=== PATIENT | female | born 1955 | race Caucasian/White ===

== ENCOUNTER 2017-02-09 10:31 | Outpatient (CLI) | payer OTHER ==
--- NOTE | 2017-02-10 18:06 | Mammography Report ---
DIGITAL SCREENING MAMMOGRAM: 02/09/2017 CLINICAL INDICATION: A 61-year-old for screening. COMPARISON: 01/2016, 12/2014, 12/2013, 12/2012, 11/2011, 10/2010, 10/2009. TECHNIQUE: Routine CC and MLO projections were obtained of the breasts. FINDINGS: Parenchymal tissue within the breasts is predominantly fatty replaced. There are no domin ant masses, suspicious microcalcifications, or secondary signs of malignancy. In comparison to the p revious studies, there are no significant changes. IMPRESSION: NO MAMMOGRAPHIC EVIDENCE OF MALIGNANCY. NO SIGNIFICANT INTERVAL CHANGES. RECOMMENDATION: Screening mammography is recommended annually. BIRADS category 1 - negative. STANDARD QUALIFYING STATEMENTS 1. This examination was reviewed with the aid of Computed-Aided Detection (CAD). 2. A negative or benign imaging report should not delay biopsy if clinically suspicious findings are present. Consider surgical consultation if warranted. More than 5% of cancers are not identified b y imaging. 3. Dense breasts may obscure an underlying neoplasm. JOB #: [id number] EXT JOB #:[id number]
== END 2017-02-09 10:32 | disposition home or self-care (01) ==
LOC: DI.N 10:31
PROVIDERS: ATTEND Internal Medicine
DX: Z12.31 Encounter for screening mammogram for malignant neoplasm of breast (principal)
CPT/HCPCS: 77067

== ENCOUNTER 2018-11-10 13:18 | Outpatient (CLI) | payer MEDICARE, OTHER ==
--- NOTE | 2018-11-11 09:10 | Mammography Report ---
Reason: SCREENING MAMMO Procedure Date: 11/10/2018 Accession Number: [id number] / [id number] Procedure: MGN - Screening Mammo Dig Bilat CPT Code: FULL RESULT: EXAM: Screening Mammo Dig Bilat DATE: 11/10/2018 2:44 PM CLINICAL HISTORY: Screening encounter. No reported risk factors. TECHNIQUE: (B) - Bilateral CC and MLO views were obtained. COMPARISON: 02/09/2017 through 01/06/2014. PARENCHYMAL PATTERN: (F) - The breast(s) demonstrate(s) diffuse fatty replacement. FINDINGS: In the right upper retroareolar breast 1 cm deep to the nipple is a 0.6 cm isodense nodule, partially obscured by vessel, otherwise well-circumscribed and not definitely demonstrated on prior exams. Right CC view suggests the finding is likely lateral, 10-11 o'clock but partially obscured on cc view. This requires additional spot imaging if possible with tomography as well as ultrasound for clarification. There are no suspicious masses, calcifications, or areas of distortion in the left breast. IMPRESSION: Incomplete examination. BI-RADS category 0. RECOMMENDATION: (ADDMU) - Additional views using both Mammography and Ultrasound recommended. Right upper breast retroareolar region 1 cm deep to the nipple, likely upper outer quadrant. BI-RADS CATEGORY: (0) - Incomplete Examination - need additional evaluation. STANDARD QUALIFYING STATEMENTS: 1. This examination was not reviewed with the aid of Computer-Aided Detection (CAD). 2. A negative or benign imaging report should not preclude biopsy if clinically suspicious findings are present. 3. Dense breasts may obscure an underlying neoplasm. 4. This examination was reviewed without the aid of 3D breast imaging (tomosynthesis).
== END 2018-11-10 13:19 | disposition home or self-care (01) ==
LOC: DI.N 13:18
DX: Z12.31 Encounter for screening mammogram for malignant neoplasm of breast (principal); R92.8 Other abnormal and inconclusive findings on diagnostic imaging of breast
CPT/HCPCS: 77067

== ENCOUNTER 2018-11-16 10:25 | Outpatient (CLI) | payer MEDICARE, OTHER ==
--- NOTE | 2018-11-16 11:12 | DEXA Report ---
Reason: SCREENING FOR OSTEOPOROSIS, POSTMENOPAUSAL, FAMILY Procedure Date: 11/16/2018 Accession Number: [id number] / [id number] Procedure: DEX - Dexa Spine and/or Hip CPT Code: FULL RESULT: EXAM: Dexa Spine and/or Hip DATE: 11/16/2018 10:56 AM CLINICAL HISTORY: SCREENING FOR OSTEOPOROSIS, POSTMENOPAUSAL, FAMILY TECHNIQUE: Dual energy x-ray absorptiometry (DXA) was performed on a [employer] System. Regions measured are the AP Spine, femoral neck, and if needed forearm. COMPARISON: 12/17/2006. In accordance with the International Society for Clinical Densitometry (ISCD) guidelines, data from previous exams may be reanalyzed using current recommendations and techniques. This is done to allow a more accurate basis for comparison with the current study. FINDINGS: The data for the lumbar spine is as follows: BMD (g/cm/cm) T-SCORE Z-SCORE REGION L1 1.003 -1.1 -0.6 L2 1.107 -0.8 -0.4 L3 1.124 -0.6 -0.2 L4 1.279 0.7 1.1 TOTAL 1.141 -0.3 0.1 NOTE: All evaluable vertebrae are used for classification The data for the hip is as follows: BMD (g/cm/cm) T-SCORE Z-SCORE REGION Neck 0.889 -1.1 -0.4 TOTAL 1.004 0.0 0.3 NOTE: The femoral neck or total proximal femur, whichever is lowest, is used for classification. IMPRESSION: THE WHO CLASSIFICATION BASED ON THE INTERNATIONAL REFERENCE STANDARD IS OSTEOPENIA (Reference left femoral neck). THE FRACTURE RISK IS INCREASED. RECOMMENDATION: Patients with diagnosis of osteoporosis or osteopenia should have regular bone mineral density assessment. For those eligible for Medicare, routine testing is allowed once every 2 years. Testing frequency can be increased for patients who have rapidly progressing disease or for those who are receiving medical therapy to restore bone mass. COMMENT: World Health Organization (WHO) definitions for osteoporosis and osteopenia: NORMAL BMD: T-score at -1.0 or higher, fracture risk is low OSTEOPENIA BMD: T-score between -1.0 and -2.5, fracture risk is increased. OSTEOPOROSIS BMD: T-score at -2.5 or lower, fracture risk is high. National Osteoporosis Foundation recommends: 1. Obtain adequate dietary calcium (at least 1200 mg per day) and vitamin D (400-800 international units per day). 2. Participate, as appropriate, in regular weightbearing and muscle-strengthening exercise. 3. Avoid tobacco use and reduce alcohol and caffeine intake. 4. For more detailed information see the website at www.NOF.org.
== END 2018-11-16 10:26 | disposition home or self-care (01) ==
LOC: DI 10:25
PROVIDERS: ATTEND Internal Medicine
DX: Z13.820 Encounter for screening for osteoporosis (principal); M85.88 Other specified disorders of bone density and structure, other site; Z78.0 Asymptomatic menopausal state; Z82.62 Family history of osteoporosis
CPT/HCPCS: 77080

== ENCOUNTER 2018-11-25 10:19 | Outpatient (CLI) | payer MEDICARE, OTHER ==
--- NOTE | 2018-11-25 11:54 | Mammography Report ---
Reason: ABN MAMMOGRAM Procedure Date: 11/25/2018 Accession Number: [id number] / [id number] Procedure: INOCENCIA - Diag Special Views Dig RT CPT Code: FULL RESULT: EXAM: Diag Special Views Dig RT DATE: 11/25/2018 10:55 AM CLINICAL HISTORY: Diagnostic mammogram. The patient is recalled from screening for findings of a new right breast retroareolar nodule. TECHNIQUE: (R) - Right CC, spot CC, MLO, ML images are obtained of the right breast. Focused right breast ultrasound examination is performed. COMPARISON: 11/10/2018 through 01/06/2014. PARENCHYMAL PATTERN: (F) - The breast(s) demonstrate(s) diffuse fatty replacement. FINDINGS: The new finding of a retroareolar nodule persists and demonstrates appearance of a cluster of small nodules on tomographic and spot images. This finding is confirmed by ultrasound which revealed a wider than tall cluster of small cysts with an overall dimension of 0.7 x 0.3 x 0.3 cm and nearby vascularity by color Doppler at the 11:00 retroareolar position. This is probably benign. There are no suspicious masses, calcifications, or areas of distortion. IMPRESSION: Probably Benign. BI-RADS category 3. RECOMMENDATION: (6MOS) - Recommend 6 month follow-up exam. Right breast focused ultrasound of the new finding. BI-RADS CATEGORY: (3) - Probably Benign. STANDARD QUALIFYING STATEMENTS: 1. This examination was not reviewed with the aid of Computer-Aided Detection (CAD). 2. A negative or benign imaging report should not preclude biopsy if clinically suspicious findings are present. 3. Dense breasts may obscure an underlying neoplasm. 4. This examination was reviewed with the aid of 3D breast imaging (tomosynthesis).
== END 2018-11-25 10:20 | disposition home or self-care (01) ==
LOC: DI 10:19
PROVIDERS: ATTEND Internal Medicine
DX: R92.8 Other abnormal and inconclusive findings on diagnostic imaging of breast (principal)
CPT/HCPCS: 76642

== ENCOUNTER 2019-07-11 13:58 | Outpatient (CLI) | payer MEDICARE, OTHER ==
--- NOTE | 2019-07-11 15:38 | Ultrasound Report ---
Reason: 6 MONTH F U - ABN MAMMO Procedure Date: 07/11/2019 Accession Number: [id number] / [id number] Procedure: US - Breast Unilateral Limited CPT Code: Final Report FULL RESULT: EXAM: Breast Unilateral Limited DATE: 07/11/2019 2:29 PM CLINICAL HISTORY: 6 MONTH F U - ABN MAMMO COMPARISON: 11/25/2018 ultrasound TECHNIQUE: Targeted ultrasound was performed of the right breast in the area of clinical concern at 11:00 o'clock immediate retroareolar breast. Color Doppler was employed as appropriate. FINDINGS: Stable appearance of the small cyst cluster measuring 7 x 3 x 4 mm compared with 11/25/2018. No suspicious solid mass is seen. IMPRESSION: Benign findings RECOMMENDATION: Return to routine screening mammography in 6 months. BIRADS CATEGORY 2: Benign findings RADIA
== END 2019-07-11 13:59 | disposition home or self-care (01) ==
LOC: DI 13:58
PROVIDERS: ATTEND Internal Medicine
DX: N60.11 Diffuse cystic mastopathy of right breast (principal)
CPT/HCPCS: 76642

== ENCOUNTER 2020-02-23 14:58 | Outpatient (CLI) | payer MEDICARE, OTHER ==
--- NOTE | 2020-02-24 09:17 | Mammography Report ---
BILATERAL DIGITAL SCREENING MAMMOGRAM 3D/2D: 02/23/2020 CLINICAL: Routine screening. Comparison is made to exams dated: 07/11/2019 ultrasound, 11/25/2018 mammogram, 11/10/2018 mammogram, mammogram, and 02/01/2016 mammogram - [facility]. The tissue of both breast s is predominantly fatty. No significant masses, calcifications, or other findings are seen in either breast. There has been no significant interval change. IMPRESSION: NEGATIVE There is no mammographic evidence of malignancy. A 1 year screening mammogram is recommended. This exam was interpreted at Station ID: [id number]. NOTE: For mammograms, a report in lay terms will be sent to the patient. Approximately 15% of breast malignancies will not be visualized mammographically. In the management of a palpable breast mass, a negative mammogram must not discourage biopsy of a clinically suspicious lesion. Electronically Signed By: Олег Kilgore M.D. ar/penrad:02/23/2020 18:07:22 ACR BI-RADS Category 1: Negative 3341F PARENCHYMAL PATTERN: (F) - The breast(s) demonstrate(s) diffuse fatty replacement. BI-RADS CATEGORY: (1) - 1 RECOMMENDATION: (ANNUAL) - Recommend routine annual screening mammography. [id number] 1 year screening LATERALITY: (B)
== END 2020-02-23 14:59 | disposition home or self-care (01) ==
LOC: DI.N 14:58
PROVIDERS: ATTEND Internal Medicine
DX: Z12.31 Encounter for screening mammogram for malignant neoplasm of breast (principal)
CPT/HCPCS: 77063; 77067

== ENCOUNTER 2021-08-05 08:13 | Emergency (ER) | payer MEDICARE ==
--- NOTE | 2021-08-05 09:57 | ED Physician Documentation ---
History of Present Illness - Stated complaint Stated Complaint: SHORNESS OF BREATH, PANIC ATTACK - Chief complaint Chief Complaint: Resp - History obtained from History obtained from: Patient - Additonal information Additional information: The patient comes to the emergency department for chief complaint of panic attack, Covid symptoms, and I need my blood sugar checked. The patient states that she began having a headache and fever a couple of weeks ago and then developed a cough. She states the fevers have resolved, but she has maintained a mild cough since then and still has been having some headaches. No body aches or sore throat. The patient states she is worried that she might have Covid. She states she is vaccinated. The patient states she was at a family event shortly before she became symptomatic and found out later that to the people at the event tested positive for Covid. She states that last night, after getting a Covid test yesterday and not having results back yet, she began to think about it and just became increasingly anxious till she had a panic attack. The patient states she has had a panic attack previously but it has been a long time. She is chronically on E citalopram, but also realized that it had been several days since she had taken the medication, so thinks this might be part of her panic attack, as well. She states that she took propranolol and a dose of her E citalopram and it did seem to help quite a bit. She states she is no longer feeling panicky here. The patient states one of the other things that was wearing her is that she has had a dry mouth and seems to be urinating a lot, though she is also drinking a lot. She was told she had borderline diabetes and is concerned that her sugars may be high. No other complaints at this time. Review of Systems Ten Systems: 10 systems reviewed and negative Constitutional: reports: Reviewed and negative Eyes: reports: Reviewed and negative Ears: reports: Reviewed and negative Nose: reports: Reviewed and negative Throat: reports: Reviewed and negative Cardiac: reports: Reviewed and negative Respiratory: reports: Cough GI: reports: Reviewed and negative : reports: Reviewed and negative Skin: reports: Reviewed and negative Musculoskeletal: reports: Reviewed and negative Neurologic: reports: Headache Psychiatric: reports: Reviewed and negative Endocrine: reports: Reviewed and negative Immunocompromised: reports: Reviewed and negative PD PAST MEDICAL HISTORY - Past Medical History Past Medical History: Yes Psych: Anxiety, Panic attacks - Present Medications Home Medications: Ambulatory Orders Medication Instructions Recorded Confirmed Alprazolam [Xanax] 0.25 mg PO Q8H PRN #10 tablet 08/05/21 - Allergies Allergies/Adverse Reactions: Allergies Allergy/AdvReac Type Severity Reaction Status Date / Time No Known Drug Allergies Allergy Verified 08/05/21 08:21 - Social History Does the pt smoke?: No Smoking Status: Never smoker PD ED PE NORMAL - Vitals Vital signs reviewed: Yes - General General: Alert and oriented X 3, No acute distress (Well-appearing patient in no distress) - HEENT HEENT: Atraumatic, PERRL, EOMI, Moist mucous membranes - Neck Neck: Supple, no meningeal sign - Cardiac Cardiac: RRR, No murmur, Strong equal pulses - Respiratory Respiratory: No respiratory distress, Clear bilaterally - Abdomen Abdomen: Soft, Non tender, Non distended - Derm Derm: Normal color, Warm and dry, No rash - Extremities Extremities: No deformity, No edema, No calf tenderness / cord - Neuro Neuro: Alert and oriented X 3, mission assessment specialist 2-12 intact, Normal speech - Psych Psych: Normal mood, Normal affect Results - Vitals Vitals: Vital Signs - 24 hr 08/05/21 08/05/21 08:17 08:29 Temperature 36.6 C Heart Rate 78 66 Respiratory 16 16 Rate Blood Pressure 148/118 H O2 Saturation 99 98 Oxygen O2 Source Room air - Labs Labs: Laboratory Tests 08/05/21 09:31 POC Whole Bld Glucose 119 H PD MEDICAL DECISION MAKING - ED course Complexity details: considered differential, d/w patient ED course: The patient in the emergency department actually appeared quite well and I did not feel any emergent interventions were indicated. I did do a fingerstick glucose on patient which was 119. She just had a Covid test taken yesterday and this is pending at this time. The patient has good oxygen saturation, comfortable breathing, and clear lungs, and I do not feel that, given the absence of these and any other symptoms acutely, she needs to have a more rapid Covid test done. I have discussed the same with the patient. I have advised her to stay home and await her test results. We have discussed follow-up with her primary doctor. At this point in time, her blood sugar is only very slightly elevated and I feel it is unlikely to be the cause of her sense of polyuria. More likely, the sense of dry mouth has caused her to drink more water, which is causing her to urinate more. We have discussed symptomatic management at home and the usual indications for return Departure - Departure Disposition: 01 Home, Self Care Clinical Impression: Viral syndrome, Dry mouth Condition: Stable Instructions: ED Viral Syndrome Prescriptions: Alprazolam [Xanax] 0.25 mg PO Q8H PRN #10 tablet PRN Reason: Anxiety Comments: Your blood sugar actually looks fairly good at 119. This is ever so slightly above normal, but should not be making you urinate more. Most likely, the dry mouth is driving you to drink more, which is causing you to urinate more. You may speak with your doctor about this if you have further concerns. At this point in time, your Covid test is pending and you should await these results. Your lungs are clear today, your respirations are normal, and your oxygen saturation and your blood is also normal. There is no evidence of a severe case of COVID or complications thereof. Please continue to manage symptoms at home. If you are positive for COVID, then you may come out of quarantine when you were no longer experiencing symptoms, since you have had symptoms already for the past 2 weeks. Please follow-up with your doctor as needed. A prescription for anxiety medication has been electronically transmitted to [facility] pharmacy in [place].
[2021-08-05 10:12] VITALS: BP 125/100
== END 2021-08-05 10:11 | disposition home or self-care (01) ==
LOC: ED 08:13
DX: B34.9 Viral infection, unspecified (principal); R68.2 Dry mouth, unspecified
CPT/HCPCS: 99282; 99284

== ENCOUNTER 2021-08-23 12:33 | Outpatient (CLI) | payer MEDICARE ==
--- NOTE | 2021-08-23 16:23 | DEXA Report ---
PROCEDURE: Dexa Spine and/or Hip INDICATIONS: OSTEOPENIA, POST MENOPAUSAL TECHNIQUE: Dual energy x-ray absorptiometry (DXA) was performed on a [employer] System. Regions measur ed are the AP Spine, femoral neck, and if needed forearm. COMPARISON: 11/16/2018. FINDINGS: Lumbar Spine: Bone Mineral Density 1.302 g/cm/cm,T score 1.0. There is interval 14.1% increase in total lumbar s pine bone mineral density. Left Hip: Bone Mineral Density 1.019 g/cm/cm,T score 0.1. There is an oval 1.5% increase in total left hip bon e mineral density. Left Femoral Neck: Bone Mineral Density 0.938 g/cm/cm, T score -0.7 (T score greater or equal to -1.0: NORMAL) (T score from -1.1 to -2.4: OSTEOPENIA) (T score less than or equal to -2.5 to: OSTEOPOROSIS) Impression: Normal bone mineral density. Patients with diagnosis of osteoporosis or osteopenia should have regular bone mineral density assess ment. For those eligible for Medicare, routine testing is allowed once every 2 years. Testing frequ ency can be increased for patients who have rapidly progressing disease or for those who are receivin g medical therapy to restore bone mass. Reviewed by: Lane Kathleen MD on 08/23/2021 4:22 PM PST Approved by: Lane Kathleen MD on 08/23/2021 4:22 PM PST Station ID: [id number]
== END 2021-08-23 12:34 | disposition home or self-care (01) ==
LOC: DI 12:33
PROVIDERS: ATTEND Physician Assistant
DX: Z78.0 Asymptomatic menopausal state (principal)

== ENCOUNTER 2021-09-17 13:17 | Outpatient (CLI) | payer MEDICARE ==
--- NOTE | 2021-09-18 09:03 | Mammography Report ---
BILATERAL DIGITAL SCREENING MAMMOGRAM 3D/2D: 09/17/2021 CLINICAL: Routine screening. Comparison is made to exams dated: 02/23/2020 mammogram, 07/11/2019 ultrasound, 11/25/2018 ultrasound, 11/25/2018 mammogram, 11/10/2018 mammogram, and 02/09/2017 mammogram - [facility]. The t issue of both breasts is predominantly fatty. No significant masses, calcifications, or other findings are seen in either breast. There has been no significant interval change. IMPRESSION: NEGATIVE There is no mammographic evidence of malignancy. A 1 year screening mammogram is recommended. This exam was interpreted at Station ID: [id number]. NOTE: For mammograms, a report in lay terms will be sent to the patient. Approximately 15% of breast malignancies will not be visualized mammographically. In the management of a palpable breast mass, a negative mammogram must not discourage biopsy of a clinically suspicious lesion. Electronically Signed By: Mony acosta/cynthia:09/17/2021 18:36:34 ACR BI-RADS Category 1: Negative 3341F PARENCHYMAL PATTERN: (F) - The breast(s) demonstrate(s) diffuse fatty replacement. BI-RADS CATEGORY: (1) - 1 RECOMMENDATION: (ANNUAL) - Recommend routine annual screening mammography. [id number] 1 year screening LATERALITY: (B)
== END 2021-09-17 13:18 | disposition home or self-care (01) ==
LOC: DI.N 13:17 → EEVIPCON 13:17 → DI.N 13:18
PROVIDERS: ATTEND Physician Assistant
DX: Z12.31 Encounter for screening mammogram for malignant neoplasm of breast (principal)

== ENCOUNTER 2022-12-25 10:53 | Outpatient (CLI) | payer MEDICARE | END 2022-12-25 10:54 | disposition home or self-care (01) | LOC: RT 10:53 | PROVIDERS: ATTEND Nurse Practitioner Family | DX: R06.00 Dyspnea, unspecified (principal) | CPT/HCPCS: 94010; 94729 ==